=== PATIENT | female | born 1950 | race Caucasian/White ===

== ENCOUNTER → 2016-05-27 | Outpatient (CLI) | payer MEDICARE, OTHER ==
--- NOTE | 2016-05-30 07:31 | MM ---
Reason for exam: history of breast cancer, mastectomy. Last mammogram was performed 11 months ago. History: Patient is postmenopausal and has history of breast cancer at age 56. Family history of breast cancer in 2 aunts. Malignant mastectomy of the right breast, June 13, 2006. Malignant US right core biopsy of the right breast, May 22, 2006. Saline implant in the right breast, 2006. Reconstructions, 2006. Chemotherapy, 2006. Took hormonal contraceptives for 20 years beginning at age 20. Took tamoxifen for 5 years. Physical Findings: Nurse did not find any significant physical abnormalities on exam. MG 3D Diag Mammo W/Cad LT CC and MLO view(s) were taken of the left breast. Prior study comparison: June 11, 2015, left breast MG 3d diag mammo w/cad LT. May 20, 2014, left breast MG diagnostic mammo LT w CAD. The breast tissue is heterogeneously dense. This may lower the sensitivity of mammography. Benign calcifications. There is no discrete abnormality. No significant new findings when compared with previous films. These results were verbally communicated with the patient and result sheet given to the patient on 05/27/16. ASSESSMENT: Benign, BI-RAD 2 RECOMMENDATION: Follow-up diagnostic mammogram of the left breast in 1 year.
== END | disposition home or self-care (01) ==
LOC: RADMAMWWP 13:11
PROVIDERS: ATTEND Internal Medicine Hematology & Oncology
DX: Z08 Encounter for follow-up examination after completed treatment for malignant neoplasm (principal); Z85.3 Personal history of malignant neoplasm of breast
CPT/HCPCS: G0206; G0279

== ENCOUNTER → 2016-12-07 | Outpatient (CLI) | payer OTHER, MEDICARE ==
--- NOTE | 2016-12-08 15:04 | XR ---
"EXAMINATION TYPE: XR thoracic spine 2V DATE OF EXAM: 12/07/2016 COMPARISON: NONE HISTORY: Mid thoracic pain Alignment is anatomic. There is multilevel moderate degenerative disc disease. Very minimal anterior wedging of a midthoracic vertebral body of indeterminate age. IMPRESSION: 1. Multilevel degenerative disc disease with very minimal anterior wedging of a midthoracic vertebral body of indeterminate age. Correlate with CT or MRI. A Yellow message has been communicated to Susan Leon via the [facility] | Critical Re sult system on 12/08/2016 3:01 PM, Message ID [id number]."
== END | disposition home or self-care (01) ==
LOC: RADXRYALE 15:10
PROVIDERS: ATTEND Physician Assistant Medical
DX: M51.34 Other intervertebral disc degeneration, thoracic region (principal)
CPT/HCPCS: 72070

== ENCOUNTER → 2024-06-07 | Outpatient (CLI) | payer MEDICARE | END | disposition home or self-care (01) | LOC: LABWHC1 10:15 | PROVIDERS: ATTEND Physician Assistant Medical | DX: Z53.9 Procedure and treatment not carried out, unspecified reason (principal) ==

== ENCOUNTER → 2024-07-30 | Outpatient (CLI) | payer MEDICARE ==
--- NOTE | 2024-07-31 07:11 | MM ---
Reason for Exam: Screening (asymptomatic). Last mammogram was performed 8 year(s) and 2 month(s) ago. Patient History: Menarche at age 13. First Full-Term at age 20. Postmenopausal. Breast cancer, age 56. Hormonal Contraceptives for 20 years from age 20 until age 40. Tamoxifen for 5 years until age 57. 06/13/2006, Malignant Mastectomy on the right side. 05/22/2006, Malignant Core Biopsy on the right side. 2006, Chemotherapy. 2006, Implant(s). 2006, Implant on the right side. Maternal aunt had breast cancer. Maternal aunt had breast cancer. Prior Study Comparison: 05/20/2014 Left Diagnostic Mammogram, [facility]. 06/11/2015 Left Diagnostic Mammogram, [facility]. 05/27/2016 Left Diagnostic Mammogram, [facility]. Tissue Density: Left: The breasts are heterogeneously dense, which may obscure small masses. Findings: Analyzed By CAD. A few small scattered benign-appearing round calcifications throughout the left breast are redemonstrated. There is no suspicious new group of microcalcifications or new suspicious mass in the left breast. Overall Assessment: Benign, BI-RAD 2 Management: Screening Mammogram of the left breast in 1 year. . Patient should continue monthly self-breast exams. A clinical breast exam by your physician is recommended on an annual basis. This exam should not preclude additional follow-up of suspicious palpable abnormalities. Note on Solange scores and lifetime risk: 1. A Solange score greater than 3% is considered moderate risk. If this is the case, consider specialist referral to assess eligibility for a risk reducing agent. 2. If overall lifetime risk for the development of breast cancer is 20% or higher, the patient may qualify for future screening with alternating mammogram and breast MRI. [facility], , 07/31/2024 7:07 AM. Electronically signed and approved by: Sahil Edmond M.D.
== END | disposition home or self-care (01) ==
LOC: RADMAMWWP 14:53
PROVIDERS: ATTEND Family Medicine
DX: Z12.31 Encounter for screening mammogram for malignant neoplasm of breast (principal); R92.333 Mammographic heterogeneous density, bilateral breasts; Z78.0 Asymptomatic menopausal state; Z80.3 Family history of malignant neoplasm of breast; Z85.3 Personal history of malignant neoplasm of breast
CPT/HCPCS: 77067